=== PATIENT | female | born 1980 | race Two or more races ===

== ENCOUNTER 2019-07-07 16:05 | Emergency (ER) | payer OTHER ==
[~2019-07-07] VITALS: Ht 170.2 cm; Wt 86.2 kg
== END 2019-07-07 20:47 | disposition home or self-care (01) ==
LOC: ER 16:05
DX: R10.84 Generalized abdominal pain (principal); R11.11 Vomiting without nausea; R19.7 Diarrhea, unspecified; R11.2 Nausea with vomiting, unspecified